=== PATIENT | female | born 2000 | race Caucasian/White ===

== ENCOUNTER 2024-03-19 00:18 | Emergency (ER) | payer MEDICAID, SELFPAY ==
[2024-03-19 00:18] VITALS: BP 130/99; PULSE 102; RESP 16; TEMP 36.9; O2SAT 96; BMI 46.4
--- NOTE | 2024-03-19 00:50 | RAD_ITS ---
INDICATION: chest pain EXAMINATION/TECHNIQUE: X-RAY - XR Chest 2 Views COMPARISON: None. FINDINGS: LINES/DEVICES: None. LUNGS: No consolidation or evidence of an effusion. No evidence of edema or a pneumothorax. MEDIASTINUM AND CARDIOVASCULAR STRUCTURES: Cardiac silhouette is normal in size and contour. Mediastinum is unremarkable. BONES AND SOFT TISSUES: No acute abnormality. RAD/Chest PA and Lateral IMPRESSION: No evidence of cardiopulmonary disease. Electronically Signed: Gallo Ly, at 1:21 EST ,
--- NOTE | 2024-03-19 00:51 | EDS_ITS ---
HPI History of Present Illness Chief Complaint: Chest Other Informant: patient Narrative Narrative: 24-year-old female presenting to the emergency room with chest pain. Patient states for about a month she has had a cough. She went to her doctor felt that she had bronchitis and gave her some amoxicillin and a cough she states that now she has developed a sharp pain left lower anterior lateral chest that is worse with touch or movement cough breathing. She denies any recent fever. She states that she requested a follow-up appoint with her doctor this morning and was recommended that she call the nurses line. She spoke with the nurses line around 1800 hrs. was told to come to emergency. [facility] Medical History GERD (gastroesophageal reflux disease) Depressed Anxiety Home Medications ?Medication ?Instructions ?Recorded ?Last Taken ?Type Unobtainable 03/19/24 Unknown History Allergy/AdvReac Type Severity Reaction Status Date / Time No Known Allergies Allergy Verified 03/19/24 00:19 Social History Smoking Status: Never smoker ROS ROS ED Constitutional Constitutional ED: Denies chills, fever(s) or weight loss Eyes Eyes: Denies change in vision or diplopia ENT ENT ED: Denies ear pain, rhinorrhea or sore throat Cardiovascular Cardiovascular: Reports chest pain; Denies orthopnea, palpitations or racing heartbeat Respiratory/Chest Respiratory/Chest: Reports cough; Denies dyspnea or orthopnea Gastrointestinal Gastrointestinal: Denies abdominal pain, diarrhea, nausea or vomiting Genitourinary Genitourinary ED: Denies dysuria, hematuria or urinary frequency Musculoskeletal Musculoskeletal: Denies arthralgias or myalgias Integumentary Denies abscess or rash Neurologic Neurologic: Denies headache(s) or weakness Psychiatric Psychiatric: Denies anxiety, depression, suicidal ideation or suicidal thoughts Endocrine Endocrinology: Denies polydipsia, polyphagia or polyuria Allergic/Immunologic Allergic/Immunologic ED: Denies mouth swelling, tongue swelling or urticaria EXAM Physical Exam Const Vital Signs: 03/19/24 00:18 03/19/24 01:35 Temperature 98.5 F 97 F L Temperature Source Oral Pulse Rate 102 H 91 Respiratory Rate 16 18 Blood Pressure 130/99 H 136/84 H Blood Pressure Mean 109 101 Pulse Ox 96 99 Positive well nourished, well developed and obese General Appearance ED: well developed and NAD Nutritional Appearance: obese HEENT Reports normocephalic, head/scalp atraumatic and moist mucous membranes Eyes PERRL and EOMs intact bilaterally Neck no lymphadenopathy, supple and no JVD Chest Wall Chest Narrative: Left anterior lower chest is tender to palpation along the costochondral junction of the lower lateral ribs. This reproduces her pain pain is also reproducible when she moves and takes a deep breath Resp normal respiratory effort and clear to auscultation bilaterally Cardio regular rate, regular rhythm and no murmurs GI normal to inspection, nondistended, normoactive bowel sounds and non-tender Palpation: soft Back/Spine no CVA tenderness and normal ROM Extremity normal to inspection General Extremety ED: Negative for edema General Extremity: Negative for edema Neuro oriented x3 and CN's II-XII intact bilaterally Sensorium / Orientation: alert Motor Exam: strength 5/5 throughout Psych mental status grossly normal Mood & Affect: Negative for depressed or tearful Skin no rashes or lesions noted and no wounds MDM MDM MDM Narrative Medical decision making narrative: Differential diagnosis includes but not limited to costochondritis costochondral separation pleurisy pneumonia pleural effusion pneumothorax muscular strain pulmonary embolism pericarditis myocarditis Patient's pain is very reproducible and very localized. My independent interpretation of her chest x-ray is no acute process. Patient's had a cough for 4 weeks. I do not see evidence of pneumonia or pleural effusion. I would doubt that this is pulmonary embolism. I believe where she is hurting is most likely a costochondritis chest wall strain. Would recommend anti-inflammatories supportive care History & Record Review Discussion w/independent historian: Patient Radiography Diagnostic Testing: Clinical Impression(s) from Imaging Studies Chest X-Ray 03/19/24 00:50 IMPRESSION: No evidence of cardiopulmonary disease. Electronically Signed: Gallo Ly DO at 1:21 EST , Discharge Plan Triage Chief Complaint: Chest Other ED Provider: Spencer Gao Dx/Rx/DC Orders Clinical Impression: Chest pain, Costochondritis, acute Instructions: Costochondritis Prescriptions: No Action Unobtainable Primary Care Provider: Kristen Gomes [facility] Referrals: NOT,DEFINED [Non-Staff] - Print Language: Cambodian Disposition Disposition: Home, Self Care Discharge Date/Time: 03/19/24 02:02
[2024-03-19 01:35] VITALS: BP 136/84; PULSE 91; RESP 18; TEMP 36.1; O2SAT 99
== END 2024-03-19 02:02 | disposition home or self-care (01) ==
PROVIDERS: Emergency Provider Emergency Medicine; PCP Internal Medicine; Visit Provider Emergency Medicine
DX: R07.9 Chest pain, unspecified (principal); M94.0 Chondrocostal junction syndrome [Tietze]
CPT/HCPCS: 71046; 99282